=== PATIENT | female | born 1960 | race Caucasian/White ===

== ENCOUNTER → 2023-05-19 | Outpatient (REF) ==
[2023-05-19 14:28] LABS: RSV AMPLIFICATION NEGATIVE (NEGATIVE)
== END ==
LOC: M EMP 13:22
PROVIDERS: ATTEND Family Medicine
DX: Z11.52 Encounter for screening for COVID-19 (principal)

== ENCOUNTER → 2023-05-22 | Outpatient (REF) | LOC: M EMP 14:15 | PROVIDERS: ATTEND Family Medicine | DX: Z11.52 Encounter for screening for COVID-19 (principal) ==

== ENCOUNTER → 2024-01-15 | Outpatient (REF) ==
[~2024-01-15] MED LIST: AMBI10TA PO; CLON1TAB8 PO; CYCL5TAB PO; LORA1TAB23; PARO25TA12 PO; PERC5TAB12 PO
== END ==
LOC: M EMP 12:04
PROVIDERS: ATTEND Family Medicine
DX: Z20.822 Contact with and (suspected) exposure to COVID-19 (principal)